=== PATIENT | male | born 1980 | race Caucasian/White ===

== ENCOUNTER 2020-08-07 00:03 | Emergency (ER) | payer BC, MEDICAID ==
[2020-08-07] MEDS ORDERED: Albuterol/Ipratropium 3.0-0.5 MG/3 ML Neb Soln NEB ONE (00:18)
[2020-08-07] MEDS ORDERED: Sodium Chloride 0.9% 10 ML Syringe FLUSH PRN (00:18)
[2020-08-07] MEDS ORDERED: methylPREDNISolone Sodium Succinate 125 MG/2 ML SDV IV ONE (00:18)
[2020-08-07] MEDS ORDERED: Albuterol 0.083% 2.5 MG/3 ML Neb Soln NEB ONE (00:18)
--- NOTE | 2020-08-07 00:26 | EDM.PDOC ---
ED HPI GENERAL MEDICAL PROBLEM - General Chief Complaint: Respiratory Problem Stated Complaint: SOB Time Seen by Provider: 08/07/20 00:10 Source of Information: Reports: Patient History Limitations: Reports: No Limitations - History of Present Illness INITIAL COMMENTS - FREE TEXT/NARRATIVE: Patient presents to the ER due to increasing SOB/difficulty breathing over the last 3 days or so. He denies any other associated symptoms such as N/V, F/C, chest pain/discomfort. He does state that he smokes 1+ppd but over the last several days has not been able to smoke as much--unable to inhale per his report due to SOB. He works for [employer]--outside/active, has not had significant work interruption per his report--has not missed work. Denies any increase in symptoms to include no LH/dizzy, weakness when at work/moving about. He denies any known COVID exposure or having received COVID immunization PMH--depression/anxiety, tobacco abuse Meds--fluoxetine (has used rescue inhaler in the past when he had pneumonia per his report) Allergies--PCN Tob--1+ ppd EtOH--couple beers daily Drugs--denies Onset Date: 08/03/20 Duration: Getting Worse Severity: Moderate Associated Symptoms: Reports: No Other Symptoms - Related Data Allergies Allergy/AdvReac Type Severity Reaction Status Date / Time Penicillins Allergy Hives Verified 08/07/20 00:16 Home Meds: Home Meds FLUoxetine HCl [Fluoxetine HCl] 40 mg PO DAILY 08/07/20 [History] Past Medical History - Past Health History Medical/Surgical History: Denies Medical/Surgical History Social & Family History - Living Situation & Occupation Living situation: Reports: , with Family ED ROS GENERAL - Review of Systems Review Of Systems: See Below Constitutional: Reports: No Symptoms. Denies: Fever, Chills, Malaise, Fatigue HEENT: Reports: No Symptoms Respiratory: Reports: Shortness of Breath, Wheezing Cardiovascular: Reports: No Symptoms Endocrine: Reports: No Symptoms GI/Abdominal: Reports: No Symptoms : Reports: No Symptoms Musculoskeletal: Reports: No Symptoms Skin: Reports: No Symptoms Neurological: Reports: No Symptoms Psychiatric: Reports: No Symptoms Hematologic/Lymphatic: Reports: No Symptoms Immunologic: Reports: No Symptoms ED EXAM, GENERAL - Physical Exam Exam: See Below Exam Limited By: No Limitations General Appearance: Alert, WD/WN, No Apparent Distress, Moderate Distress (respiratory--limited conversation due to SOB/dyspnea) Eye Exam: Bilateral Eye: EOMI, Normal Inspection, PERRL Ears: Normal External Exam Nose: Normal Inspection Throat/Mouth: Normal Inspection, Normal Lips, Normal Oropharynx, Normal Voice, No Airway Compromise Head: Atraumatic, Normocephalic Neck: Normal Inspection, Supple, Non-Tender, Full Range of Motion. No: Lymphadenopathy (R), Lymphadenopathy (L) Respiratory/Chest: Respiratory Distress (moderate secondary to SOB/dyspnea), Wheezing (throughout--inspiratory/expiratory with some decrease in air movement, 'tight' BS in nature). No: Crackles, Rales, Rhonchi Cardiovascular: Normal Peripheral Pulses, Regular Rate, Rhythm, No Edema, No Murmur Peripheral Pulses: 2+: Radial (L), Radial (R) GI/Abdominal: Normal Bowel Sounds, Soft, Non-Tender (Male) Exam: Deferred Rectal (Males) Exam: Deferred Back Exam: Normal Inspection Extremities: Normal Inspection, Normal Range of Motion, No Pedal Edema, Normal Capillary Refill Neurological: Alert, Oriented, Normal Cognition, Normal Gait, No Motor/Sensory Deficits Psychiatric: Normal Affect, Normal Mood Skin Exam: Warm, Dry, Intact, Normal Color Lymphatic: No Adenopathy Course - Vital Signs Text/Narrative:: 010--patient recheck, approx 1/2 completed 1-hour cont nebulizer patient reports breathing has improved, he is talking better/improved voice; Resp--Lungs continue to have bilateral wheeze throughout--inspiratory/expiratory but not as tight as when he initially arrived. pulse ox has improved as initial exam noted 93-94%, now at 97% RA. reviewed labs/rad--COVID swab is still pending and will determine final d/c recommendations of home quarantine vs RAD exacerbation 0130--1 hour cont nebulizer completed, patient states he feels markedly better/ready to go home; Resp--Lungs CTAB, easy/unlabored, p/o 93-94% RA. d/w him COVID returned negative, encouraged to obtain immunization due to work environment & smoking risk factor Last Recorded V/S: Last Vital Signs Temp 96.3 F L 08/07/20 00:16 Pulse 98 08/07/20 00:16 Resp 18 08/07/20 00:16 BP 128/79 08/07/20 00:16 Pulse Ox 95 08/07/20 00:16 - Orders/Labs/Meds Orders: Active Orders 24 hr Category Date Time Status Peripheral IV Care [RC] . DIRECTED Care 08/07/20 00:20 Active Pulse Oximetry [RC] CONTINUOUS Care 08/07/20 00:19 Active RT Post Treatment Assessment [RC] Click to Edit Care 08/07/20 00:39 Active Chest 1V Frontal [CR] Urgent Exams 08/07/20 00:18 Taken Albuterol/Ipratropium [Combivent Respimat] Med 08/07/20 00:37 Active 18 gm INH Q4H PRN Sodium Chloride 0.9% [Saline Flush] Med 08/07/20 00:18 Active 10 ml FLUSH ASDIRECTED PRN ED Respiratory Adult Reflex [OM.PC] Click to Edit Oth 08/07/20 00:18 Ordered Isolation [COMM] Stat Oth 08/07/20 00:21 Ordered Peripheral IV Insertion Adult [OM.PC] Urgent Oth 08/07/20 00:18 Ordered Medication Orders Albuterol/Ipratropium (Albuterol/Ipratropium 4 Gm Inhalation [place]) 18 gm INH Q4H PRN PRN Reason: Dyspnea Sodium Chloride (Sodium Chloride 0.9% 10 Ml Syringe) 10 ml FLUSH ASDIRECTED PRN PRN Reason: Keep Vein Open Last Admin: 08/07/20 00:34 Dose: 10 ml Documented by: CYNDIE Labs: Laboratory Tests 08/07/20 08/07/20 08/07/20 Range/Units 00:24 00:24 00:24 WBC 8.2 (4.5-11.0) K/uL RBC 4.67 (4.30-5.90) M/uL Hgb 14.1 (12.0-15.0) g/dL Hct 42.2 (40.0-54.0) % MCV 90 (80-98) fL MCH 30 (27-31) pg MCHC 33 (32-36) % Plt Count 306 (150-400) K/uL Neut % (Auto) 44 (36-66) % Lymph % (Auto) 37 (24-44) % [place] % (Auto) 8 H (2-6) % Eos % (Auto) 11 H (2-4) % Baso % (Auto) 1 (0-1) % Sodium 143 (140-148) mmol/L Potassium 4.2 (3.6-5.2) mmol/L Chloride 104 (100-108) mmol/L Carbon Dioxide 28 (21-32) mmol/L Anion Gap 11.3 (5.0-14.0) mmol/L BUN 11 (7-18) mg/dL Creatinine 1.1 (0.8-1.3) mg/dL Est Cr Clr Drug Dosing TNP Estimated GFR (MDRD) > 60 (>60) Glucose 93 (74-106) mg/dL Calcium 9.0 (8.5-10.1) mg/dL Magnesium 2.0 (1.8-2.4) mg/dL Total Bilirubin 0.3 (0.2-1.0) mg/dL AST 21 (15-37) U/L ALT 35 (12-78) U/L Alkaline Phosphatase 100 (46-116) U/L Total Protein 7.0 (6.4-8.2) g/dL Albumin 3.9 (3.4-5.0) g/dL Globulin 3.1 (2.3-3.5) g/dL Albumin/Globulin Ratio 1.3 (1.2-2.2) Influenza Type A RNA Negative (NEGATIVE) RSV RNA (INAAT) Negative (NEGATIVE) Influenza Type B RNA Negative (NEGATIVE) SARS-CoV-2 RNA (YEIMI) Negative (NEGATIVE) Meds: Medications Generic Name Dose Route Start Last Admin Trade Name Freq PRN Reason Stop Dose Admin Albuterol/Ipratropium 18 gm 08/07/20 00:37 Albuterol/Ipratropium 4 Gm Inhalation [place] INH Q4H PRN Dyspnea Sodium Chloride 10 ml 08/07/20 00:18 08/07/20 00:34 Sodium Chloride 0.9% 10 Ml Syringe FLUSH 10 ml ASDIRECTED PRN Administration Keep Vein Open Discontinued Medications Generic Name Dose Route Start Last Admin Trade Name Freq PRN Reason Stop Dose Admin Albuterol 5 mg 08/07/20 00:18 08/07/20 00:34 Albuterol 0.083% 2.5 Mg/3 Ml Neb Soln NEB 08/07/20 00:19 5 mg ONETIME ONE Administration Albuterol/Ipratropium 3 ml 08/07/20 00:18 08/07/20 00:34 Albuterol/Ipratropium 3.0-0.5 Mg/3 Ml Neb Soln NEB 08/07/20 00:19 3 ml ONETIME ONE Administration Methylprednisolone Sodium Succinate 125 mg 08/07/20 00:18 08/07/20 00:34 Methylprednisolone Sodium Succinate 125 Mg/2 Ml Sdv IV 08/07/20 00:19 125 mg ONETIME ONE Administration - Radiology Interpretation Free Text/Narrative:: 0100--preliminary chest film 1V no acute process, final radiology reading pending Departure - Departure Time of Disposition: 01:38 Disposition: Home, Self-Care 01 Condition: Good Clinical Impression: Reactive airway disease with acute exacerbation, Cigarette smoker - Discharge Information *PRESCRIPTION DRUG MONITORING PROGRAM REVIEWED*: Not Applicable *COPY OF PRESCRIPTION DRUG MONITORING REPORT IN PATIENT AIDAN: Not Applicable Instructions: Steps to Quit Smoking, [id number], Coping with Quitting Smoking, Shortness of Breath, Adult, [id number], Metered Dose Inhaler (No Sp acer Used) Referrals: PCP,None [Primary Care Provider] - Forms: ED Department Discharge Additional Instructions: You have been given an inhaler--COMBIVENT in the ER at time of discharge--you can use this inhaler 2 puffs every 4-6 hours as needed for shortness of breath/wheezing/cough You have been given a prescription in [facility] for prednisone (oral steroid)--start in the morning at breakfast as per label instructions (take with food to decrease stomach upset) It is strongly encouraged that you STOP SMOKING! You need to contact your family doctor for ER follow up by Tuesday to ensure your breathing / respiratory condition is improving It is recommended that you stay home from work today--13 July to get rest and allow your body some healing time Your COVID & Influenza test is negative--no quarantine is indicated--it is strongly encouraged that you obtain the COVID immunization due to your work out in public places/around others Sepsis Event Note (ED) - Evaluation Sepsis Screening Result: Possible Sepsis Risk - Focused Exam Vital Signs: Vital Signs Temp Pulse Resp BP Pulse Ox 08/07/20 00:16 96.3 F L 98 18 128/79 95 - My Orders Last 24 Hours: My Active Orders 08/07/20 00:18 Chest 1V Frontal [CR] Urgent Sodium Chloride 0.9% [Saline Flush] 10 ml FLUSH ASDIRECTED PRN ED Respiratory Adult Reflex [OM.PC] Click to Edit Peripheral IV Insertion Adult [OM.PC] Urgent 08/07/20 00:19 Pulse Oximetry [RC] CONTINUOUS 08/07/20 00:20 Peripheral IV Care [RC] . DIRECTED 08/07/20 00:21 Isolation [COMM] Stat 08/07/20 00:37 Albuterol/Ipratropium [Combivent Respimat] 18 gm INH Q4H PRN 08/07/20 00:39 RT Post Treatment Assessment [RC] Click to Edit - Assessment/Plan Last 24 Hours: My Active Orders 08/07/20 00:18 Chest 1V Frontal [CR] Urgent Sodium Chloride 0.9% [Saline Flush] 10 ml FLUSH ASDIRECTED PRN ED Respiratory Adult Reflex [OM.PC] Click to Edit Peripheral IV Insertion Adult [OM.PC] Urgent 08/07/20 00:19 Pulse Oximetry [RC] CONTINUOUS 08/07/20 00:20 Peripheral IV Care [RC] . DIRECTED 08/07/20 00:21 Isolation [COMM] Stat 08/07/20 00:37 Albuterol/Ipratropium [Combivent Respimat] 18 gm INH Q4H PRN 08/07/20 00:39 RT Post Treatment Assessment [RC] Click to Edit
[2020-08-07] MEDS ORDERED: Albuterol/Ipratropium 4 GM Inhalation Spray INH PRN ×2 (00:37→01:35)
[2020-08-07 01:02] LABS: CORONAVIRUS COVID-19 NAA NEGATIVE (NEGATIVE)
[2020-08-07] MEDS ORDERED: Albuterol/Ipratropium 4 GM Inhalation Spray INH ONE (01:33)
[2020-08-07 01:44] VITALS: BP 112/66; PULSE 107
--- NOTE | 2020-08-07 09:10 | CR ---
CHEST: Portable 08/07/2020 at 12:40 AM CLINICAL HISTORY:SOB COMPARISON:None FINDINGS: The heart size, pulmonary vascularity and hilar structures are normal. No infiltrate effusion or pneumothorax is seen. IMPRESSION: No acute cardiopulmonary process.
== END 2020-08-07 02:06 | disposition home or self-care (01) ==
LOC: JP.ED 00:03
DX: J45.901 Unspecified asthma with (acute) exacerbation (principal); F17.210 Nicotine dependence, cigarettes, uncomplicated; Z20.822 Contact with and (suspected) exposure to COVID-19; Z88.0 Allergy status to penicillin; Z79.899 Other long term (current) drug therapy
CPT/HCPCS: 0241U; 36415; 71045; 80053; 83735; 85025; 94640; 96374; 99284; 99285; A9270; J2930; J7620-GY

== ENCOUNTER 2021-04-11 07:12 | Emergency (ER) | payer BC ==
[2021-04-11 07:19] VITALS: BP 143/97; PULSE 116
[2021-04-11] MEDS ORDERED: Sodium Chloride 0.9% 10 ML Syringe FLUSH PRN (07:34)
[2021-04-11] MEDS ORDERED: methylPREDNISolone Sodium Succinate 125 MG/2 ML SDV IVPUSH ONE (07:34)
[2021-04-11] MEDS ORDERED: Bupivacaine 0.5%/EPINEPHrine 1:200,000 1.8 ML Cartridge INJECT ONE ×2 (08:00→08:22)
== END 2021-04-11 09:01 | disposition home or self-care (01) ==
LOC: JP.ED 07:12
DX: K04.7 Periapical abscess without sinus (principal); Z72.0 Tobacco use
CPT/HCPCS: 64400; 96365; 96375; 99283; J2930; J3490; 99284

== ENCOUNTER 2021-05-04 06:37 | Emergency (ER) | payer BC ==
[2021-05-04] MEDS ORDERED: Ketorolac 30 MG/ML SDV IM ONE (06:38)
[2021-05-04 06:53] VITALS: BP 142/87; PULSE 91
[2021-05-04] MEDS ORDERED: oxyCODONE 5 MG Tab PO ONE (07:16)
== END 2021-05-04 08:15 | disposition home or self-care (01) ==
LOC: JP.ED 06:37
DX: K59.00 Constipation, unspecified (principal); F17.210 Nicotine dependence, cigarettes, uncomplicated
CPT/HCPCS: 74176; 81001; 99284; A9270

== ENCOUNTER 2021-05-05 07:53 | Emergency (ER) | payer BC ==
[2021-05-05 08:07] VITALS: BP 139/78; PULSE 89
== END 2021-05-05 08:48 | disposition home or self-care (01) ==
LOC: JP.ED 07:53
DX: M54.6 Pain in thoracic spine (principal); Z72.0 Tobacco use
CPT/HCPCS: 99283